=== PATIENT | male | born 1990 | race African-American/Black ===

== ENCOUNTER 2018-11-09 17:37 | Emergency (ER) | payer SELFPAY ==
[2018-11-09] MEDS ORDERED: cefTRIAXone 250 MG in Lidocaine 1% 1 ML IM ONE (17:58)
[2018-11-09] MEDS ORDERED: Azithromycin 250 MG Tab PO ONE (17:59)
[2018-11-09] MEDS ORDERED: metroNIDAZOLE 250 MG Tab PO ONE (17:59)
--- NOTE | 2018-11-09 18:03 | EDM.PDOC ---
ED HPI GENERAL MEDICAL PROBLEM - General Chief Complaint: General Stated Complaint: DIZZY Time Seen by Provider: 11/09/18 17:52 - History of Present Illness INITIAL COMMENTS - FREE TEXT/NARRATIVE: HISTORY AND PHYSICAL: History of present illness: The patient is a 28-year-old male who presents with penile discharge which is white and pain with urination for the last 1-2 days after having unprotected sex with a woman who told him that she has had chlamydia and Trichomonas in the past. He said that the symptoms started immediately after intercourse and he has been somewhat freaked out by it and has been looking things up on the Internet. He has no hematuria and no flank pain no suprapubic pain or testicular pain no nausea vomiting fevers or chills. He says that the drainage from the penis is white and every time he please there is discomfort. Prior to having this encounter with this woman he had no systemic complaints and specifically no pain with urination frequency or urgency. Review of systems: As per history of present illness and below otherwise all systems reviewed and negative. Past medical history: As per history of present illness and as reviewed below otherwise noncontributory. Surgical history: As per history of present illness and as reviewed below otherwise noncontributory. Social history: No reported history of drug or alcohol abuse. Family history: As per history of present illness and as reviewed below otherwise noncontributory. Physical exam: HEENT: Atraumatic, normocephalic, negative for conjunctival pallor or scleral icterus, mucous membranes moist, throat clear, neck supple, nontender, trachea midline. Lungs: Clear to auscultation, breath sounds equal bilaterally, chest nontender. Heart: S1S2, regular and rhythm no overt murmurs Abdomen: Soft, nondistended, nontender. NABS Negative for costovertebral tenderness. Pelvis: Stable nontender. Genitourinary: Deferred. Rectal: Deferred. Extremities: Atraumatic, full range of motion without defects or deficits Neurovascular unremarkable. Neuro: Awake, alert, oriented. Cranial nerves II through XII unremarkable. Cerebellum unremarkable. Motor and sensory unremarkable throughout. Exam nonfocal. Diagnostics: Patient was offered STD testing and UA and declines Therapeutics: Flagyl and azithromycin orally, Rocephin IM Impression: Urethritis with history of unprotected sex Definitive disposition and diagnosis as appropriate pending reevaluation and review of above. - Related Data Allergies Allergy/AdvReac Type Severity Reaction Status Date / Time No Known Allergies Allergy Verified 11/09/18 17:46 Home Meds: Home Meds . [No Known Home Meds] 11/09/18 [History] Past Medical History - Past Health History Medical/Surgical History: Denies Medical/Surgical History Social & Family History - Family History Family Medical History: Noncontributory - Tobacco Use Smoking Status *Q: Never Smoker - Recreational Drug Use Recreational Drug Use: No ED ROS GENERAL - Review of Systems Review Of Systems: ROS reveals no pertinent complaints other than HPI. ED EXAM, GENERAL - Physical Exam Exam: See Below (See dictation) Course - Vital Signs Last Recorded V/S: Last Vital Signs Temp 36.6 C 11/09/18 17:44 Pulse 72 11/09/18 17:44 Resp 18 11/09/18 17:44 BP 136/74 11/09/18 17:44 Pulse Ox 98 11/09/18 17:44 - Orders/Labs/Meds Orders: Active Orders 24 hr Category Date Time Status Azithromycin [Zithromax] Med 11/09/18 17:59 Once 1,000 mg PO ONETIME ONE cefTRIAXone [Rocephin] 250 mg Med 11/09/18 17:58 Ordered Lidocaine 1% [Xylocaine-MPF 1%] 1 ml IM ONETIME metroNIDAZOLE Med 11/09/18 17:59 Once 2,000 mg PO NOW ONE Medication Orders Azithromycin (Zithromax) 1,000 mg PO ONETIME ONE Stop: 11/09/18 18:00 Ceftriaxone Sodium 250 mg/ (Lidocaine HCl) 1 mls @ 1 mls/sec IM ONETIME ONE Stop: 11/09/18 17:59 Metronidazole (Metronidazole) 2,000 mg PO NOW ONE Stop: 11/09/18 18:00 Meds: Medications Generic Name Dose Route Start Last Admin Trade Name Freq PRN Reason Stop Dose Admin Azithromycin 1,000 mg 11/09/18 17:59 Zithromax PO 11/09/18 18:00 ONETIME ONE Ceftriaxone Sodium 250 mg/ 1 mls @ 1 mls/sec 11/09/18 17:58 Lidocaine HCl IM 11/09/18 17:59 ONETIME ONE Metronidazole 2,000 mg 11/09/18 17:59 Metronidazole PO 11/09/18 18:00 NOW ONE Departure - Departure Time of Disposition: 18:02 Disposition: Home, Self-Care 01 Condition: Good Clinical Impression: Urethritis, Penile discharge - Discharge Information Referrals: PCP,None [Primary Care Provider] - Additional Instructions: The following information is given to patients seen in the emergency department who are being discharged to home. This information is to outline your options for follow-up care. We provide all patients seen in our emergency department with a follow-up referral. The need for follow-up, as well as the timing and circumstances, are variable depending upon the specifics of your emergency department visit. If you don't have a primary care physician on staff, we will provide you with a referral. We always advise you to contact your personal physician following an emergency department visit to inform them of the circumstance of the visit and for follow-up with them and/or the need for any referrals to a consulting specialist. The emergency department will also refer you to a specialist when appropriate. This referral assures that you have the opportunity for followup care with a specialist. All of these measure are taken in an effort to provide you with optimal care, which includes your followup. Under all circumstances we always encourage you to contact your private physician who remains a resource for coordinating your care. When calling for followup care, please make the office aware that this follow-up is from your recent emergency room visit. If for any reason you are refused follow-up, please contact the [facility] emergency department at and ask to speak to the emergency department charge nurse. [facility] [address] [place] [id number] Push hydration and refrain from sexual intercourse for the next 3 days. After the next 3 days please use a condom and protect herself at all times. You may follow up with our urologist as needed for continuing symptoms. You have been given those resources as above for the clinic. Return to ER as needed and as discussed - My Orders Last 24 Hours: My Active Orders 11/09/18 17:58 cefTRIAXone [Rocephin] 250 mg Lidocaine 1% [Xylocaine-MPF 1%] 1 ml IM ONETIME 11/09/18 17:59 Azithromycin [Zithromax] 1,000 mg PO ONETIME ONE metroNIDAZOLE 2,000 mg PO NOW ONE - Assessment/Plan Last 24 Hours: My Active Orders 11/09/18 17:58 cefTRIAXone [Rocephin] 250 mg Lidocaine 1% [Xylocaine-MPF 1%] 1 ml IM ONETIME 11/09/18 17:59 Azithromycin [Zithromax] 1,000 mg PO ONETIME ONE metroNIDAZOLE 2,000 mg PO NOW ONE
== END 2018-11-09 18:55 | disposition home or self-care (01) ==
LOC: MW.ED 17:37
DX: N34.2 Other urethritis (principal); N48.89 Other specified disorders of penis
CPT/HCPCS: 96372; 99283; A9270; J0696; J2001